=== PATIENT | male | born 1980 | race African-American/Black ===

== ENCOUNTER 2024-02-06 15:58 | Outpatient (CLI) | payer BC | END 2024-02-06 15:59 | disposition home or self-care (01) | LOC: CSHRAD 15:58 | PROVIDERS: ATTEND Family Medicine | DX: R20.2 Paresthesia of skin (principal); M54.50 Low back pain, unspecified; M48.061 Spinal stenosis, lumbar region without neurogenic claudication; M48.07 Spinal stenosis, lumbosacral region | CPT/HCPCS: 72148 ==